=== PATIENT | female | born 1970 | race African-American/Black ===

== ENCOUNTER 2018-11-18 20:05 | Emergency (ER) | payer OTHER ==
[2018-11-18 20:12] VITALS: BP 121/77; PULSE 71; TEMP 98.5; BMI 29.5
--- NOTE | 2018-11-18 21:15 | PDOC ---
History of Present Illness - General Chief Complaint: Injury Stated Complaint: R/LEG/PAIN/HEADACHE Time Seen by Provider: 11/18/18 20:22 - History of Present Illness Initial Comments: 11/18/18 21:08 48 y/o F without CM presents for evaluation after tripping while walking over an object on the sidewalk.She complains of R leg pain from the injury that occurred 5 days ago. Past History - Past Medical History Allergies/Adverse Reactions: Allergies Allergy/AdvReac Type Severity Reaction Status Date / Time No Known Allergies Allergy Verified 11/18/18 20:12 Home Medications: Ambulatory Orders Calcium Carbonate/Vitamin D3 [Calcium 250+D Tablet] 1 each PO DAILY 08/19/14 Aspirin [ASA -] 81 mg PO DAILY #7 tab.chew 09/10/14 Naproxen [Naprosyn -] 500 mg PO BID PRN #14 tablet 09/18/15 Cyclobenzaprine HCl [Flexeril 10 mg] 10 mg PO HS PRN #10 tablet 11/18/18 Ibuprofen [Motrin -] 600 mg PO TID #30 tablet 11/18/18 COPD: No HTN: Yes (controlled with oral meds) - Surgical History Cardiac Surgery: Yes (2) - Immunization History Immunization Up to Date: Yes - Suicide/Smoking/Psychosocial Hx Smoking History: Never smoked Number of Cigarettes Smoked Daily: 0 Cigars Per Day: 0 Hx Alcohol Use: Yes (OCCASIONALLY) Drug/Substance Use Hx: No Substance Use Type: None Review of Systems - Review of Systems Musculoskeletal: Yes: See HPI, Joint Pain, Muscle Pain *Physical Exam - Vital Signs Last Vital Signs Temp Pulse Resp BP Pulse Ox 98.5 F 71 18 121/77 97 11/18/18 20:10 11/18/18 20:10 11/18/18 20:10 11/18/18 20:10 11/18/18 20:10 - Physical Exam Comments: 11/18/18 21:12 There is decreased painful ROM of the knee 0-90 with pain, there is no effusion of instability, there is medial and lateral JLT The calf is soft and floppy with tenderness about the medial and lateral head of the gastroc. There is also tenderness about the hamstrings, there is no medial thigh tenderness, SLR test is negative and there are no gross sensory or motor deficits. [facility] Medical Decision Making - Medical Decision Making 11/18/18 21:15 hamstring and calf strain as well as possible MMT and LMT R knee, Motrin and flexeril f/u with ortho WBAT with crutches. *DC/Admit/Observation/Transfer Diagnosis at time of Disposition: Knee pain, right, Muscle strain of right lower extremity - Discharge Dispostion Disposition: HOME Condition at time of disposition: Stable Decision to Admit order: No - Prescriptions Prescriptions: Cyclobenzaprine HCl [Flexeril 10 mg] 10 mg PO HS PRN #10 tablet PRN Reason: Muscle Spasms Ibuprofen [Motrin -] 600 mg PO TID #30 tablet - Referrals Referrals: Gael Peter MD [Primary Care Provider] - Sergei García DO [Staff Physician] - - Patient Instructions Additional Instructions: Please take the medication as directed. Without fail please follow up with orthopedic surgery in 1-2 days for further evaluation and treatment options. Return to the emergency room should symptoms worsen, You may weight bear as tolerated with the use of crutches until you are no longer limping. - Post Discharge Activity
== END 2018-11-18 21:27 | disposition home or self-care (01) ==
LOC: JERFT 20:05
DX: S86.111A Strain of other muscle(s) and tendon(s) of posterior muscle group at lower leg level, right leg, initial encounter (principal); M25.562 Pain in left knee; W18.09XA Striking against other object with subsequent fall, initial encounter; Y93.01 Activity, walking, marching and hiking; Y92.480 Sidewalk as the place of occurrence of the external cause; Y99.8 Other external cause status; I10 Essential (primary) hypertension
CPT/HCPCS: 99281-25

== ENCOUNTER 2019-04-19 04:25 | Emergency (ER) | payer OTHER ==
[2019-04-19 04:33] VITALS: BP 128/82; PULSE 90; TEMP 98.5; BMI 32.1
[2019-04-19] MEDS ORDERED: AMPICILLIN NA/SULBACTAM NA 1.5 GM in SODIUM CHLORIDE 100 ML IVPB ONE (05:02)
--- NOTE | 2019-04-19 05:20 | PDOC ---
Attending Attestation - Resident Resident Name: Dahiana Betancourt - ED Attending Attestation I have performed the following: I have examined & evaluated the patient, The case was reviewed & discussed with the resident, I agree w/resident's findings & plan - HPI HPI: 04/19/19 05:22 Pt comes with self stab wound to the L palmar hand @ the 4th MCP joint. Pt was cutting brownies with a clean knife and accidentally stuck herself. - Physicial Exam PE: 04/19/19 05:23 Agree with resident exam 04/19/19 05:23 Pt has no fever; hand is neither swollen nor red. Pt states that she cleaned her hand out with soap and water and placed bacitracin on it and she iced the hand. Now with pain at the palmar aspect of the hand. - Medical Decision Making 04/19/19 05:24 Pt will be discharged home with augmentin 500mg TID x 7 days She will be given a dose of IV Unasyn here She is UTD on her Tdap. Pt understands the risk of flexor tenosynovitis. She will look out for redness, swelling, worsening pain. Pt has been advised to follow at a tertiary facility that has a hand surgeon
--- NOTE | 2019-04-19 05:23 | PDOC ---
History of Present Illness - General Chief Complaint: Pain Stated Complaint: CHEST PAIN/FINGER LACERATION Time Seen by Provider: 04/19/19 04:54 History Source: Patient Exam Limitations: No Limitations - History of Present Illness Initial Comments: 04/19/19 05:23 49y F with no significant PMH presenting to ED with complaints of hand pain due to puncture injury by knife cutting [place] at 2000 last night. She applied pressure which stopped the bleeding and applied antibacterial ointment. There is no longer a cut. She endorses pain in the hand with difficulty flexing the 4th L digit. Denies numbness/tingling, fevers, erythema. She is also here with complaints of R sided chest pain x 2-3 months. Pt describes the pain as intermittent, occurring almost every week sporadically lasting for approx 1h. Pt states that she does not move when this happens. Denies recent surgery, travel, ocp use, leg swelling, smoking, history of sudden cardiac , dyspnea. No symptoms at this time. PMD: PMH: none PSH: none Meds; none Allergies: nkda Social: denies Past History - Past Medical History Allergies/Adverse Reactions: Allergies Allergy/AdvReac Type Severity Reaction Status Date / Time No Known Allergies Allergy Verified 04/19/19 04:31 Home Medications: Ambulatory Orders Cyclobenzaprine HCl 10 mg PO Q8H PRN #14 tablet 11/19/18 Ibuprofen 600 mg PO Q6H PRN #30 tablet 11/19/18 Amoxicillin/Potassium Clav [Augmentin 500-125 Tablet] 1 each PO TID #21 tablet 04/19/19 Ibuprofen 600 mg PO TID #12 tablet 04/19/19 COPD: No HTN: Yes (controlled with oral meds) - Surgical History Cardiac Surgery: Yes (2) - Immunization History Immunization Up to Date: Yes - Psycho Social/Smoking Cessation Hx Smoking History: Never smoked Number of Cigarettes Smoked Daily: 0 Cigars Per Day: 0 Hx Alcohol Use: No Drug/Substance Use Hx: No Substance Use Type: None Review of Systems - Review of Systems Constitutional: No: Symptoms Reported HEENTM: No: Symptoms Reported Respiratory: No: Symptoms reported Cardiac (ROS): Yes: See HPI ABD/GI: No: Symptoms Reported : No: Symptoms Reported Musculoskeletal: Yes: See HPI Integumentary: Yes: See HPI Neurological: No: Symptoms reported *Physical Exam - Vital Signs Last Vital Signs Temp Pulse Resp BP Pulse Ox 98.5 F 90 18 128/82 98 04/19/19 04:04/19/19 04:04/19/19 04:04/19/19 04:04/19/19 04:26 - Physical Exam General Appearance: Yes: Nourished, Appropriately Dressed. No: Apparent Distress HEENT: positive: EOMI, GARCIA, Normal ENT Inspection Respiratory/Chest: positive: Lungs Clear, Normal Breath Sounds. negative: Crackles, Rales, Rhonchi, Stridor, Wheezing Cardiovascular: positive: Regular Rhythm, Regular Rate, S1, S2. negative: Edema , JVD, Murmur Gastrointestinal/Abdominal: positive: Normal Bowel Sounds, Soft. negative: Tender Extremity: positive: Other (L hand with scar on palmar aspect near 4th digit. no fb, drainage, bleeding, color change. pain with passive flexion of 4th digit. ) Integumentary: positive: Normal Color, Dry, Warm Neurologic: positive: import/export specialist II-XII NML intact, Fully Oriented, Alert, Normal Mood/ Affect, Normal Response, Motor Strength 5/5 Medical Decision Making - Medical Decision Making 04/19/19 06:27 49y F presenting to ED for laceration and atypical cp. low suspicion for acs, pt following up with pmd for this. Does not require work up at this time; does not have cp at this time. unasyn given for coverage. toradol for pain low suspicion for flexor tenosynovitis at this time. no laceration to repair; no open lesion, no active bleeding. pt refusing xray. augmentin and ibuprofen sent to pharmacy. given return precautions and splint to wear. 04/19/19 06:30 Discharge - Discharge Information Problems reviewed: Yes Clinical Impression/Diagnosis: Laceration of hand Qualifiers: Encounter type: initial encounter Foreign body presence: without foreign body Laterality: left Qualified Code(s): S61.412A - Laceration without foreign body of left hand, initial encounter Condition: Good Disposition: HOME - Admission No - Additional Discharge Information Prescriptions: Amoxicillin/Potassium Clav [Augmentin 500-125 Tablet] 1 each PO TID #21 tablet Ibuprofen 600 mg PO TID #12 tablet - Follow up/Referral Referrals: Gael Peter MD [Primary Care Provider] - - Patient Discharge Instructions Additional Instructions: A prescription for an antibiotic was sent to your pharmacy, use as directed. Come back to the ER if you have worsening swelling of the finger, it is red, you cannot move it despite pain medications or if any new or concerning symptom develops. Thank you - Post Discharge Activity
[2019-04-19] MEDS ORDERED: KETOROLAC TROMETHAMINE 15 MG/ML VIAL IVPUSH ONE (06:08)
[2019-04-19] MEDS ORDERED: KETOROLAC TROMETHAMINE 15 MG/ML VIAL ONE (06:09)
--- NOTE | 2019-04-19 09:55 | EKG ---
Test Reason : Blood Pressure : / mmHG Vent. Rate : 087 BPM Atrial Rate : 087 BPM P-R Int : 150 ms QRS Dur : 086 ms QT Int : 378 ms P-R-T Axes : 050 014 037 degrees QTc Int : 454 ms POOR DATA QUALITY, INTERPRETATION MAY BE ADVERSELY AFFECTED NORMAL SINUS RHYTHM NORMAL ECG WHEN COMPARED WITH ECG OF 10-SEP-2014 07:51, NO SIGNIFICANT CHANGE WAS FOUND Confirmed by Kristina Becker ([id number]) on 04/19/2019 9:54:35 AM Referred By: Confirmed By:Kristina Becker
== END 2019-04-19 06:29 | disposition home or self-care (01) ==
LOC: JER 04:25
PROC: 3E03329 Introduction of Other Anti-infective into Peripheral Vein, Percutaneous Approach (ICD-10-PCS; principal; 2019-04-19)
PROC: 2W3KX1Z Immobilization of Left Finger using Splint (ICD-10-PCS; 2019-04-19)
DX: S61.215A Laceration without foreign body of left ring finger without damage to nail, initial encounter (principal); W26.0XXA Contact with knife, initial encounter; Y93.G1 Activity, food preparation and clean up; Y92.038 Other place in apartment as the place of occurrence of the external cause; Y99.8 Other external cause status
CPT/HCPCS: 29131; 93005; 93010; 96365; 99284-25

== ENCOUNTER 2022-08-12 01:40 | Emergency (ER) | payer OTHER ==
[2022-08-12 01:52] VITALS: BP 133/92; PULSE 107; RESP 18; TEMP 98.1; BMI 29.7
[2022-08-12] MEDS ORDERED: KETOROLAC TROMETHAMINE 30 MG/1 ML VIAL IM ONE (02:48)
[2022-08-12] MEDS ORDERED: KETOROLAC TROMETHAMINE 30 MG/1 ML VIAL ONE (02:51)
== END 2022-08-12 04:06 | disposition home or self-care (01) ==
LOC: JER 01:40
PROC: 3E0233Z Introduction of Anti-inflammatory into Muscle, Percutaneous Approach (ICD-10-PCS; principal; 2022-08-12)
DX: M25.561 Pain in right knee (principal); G89.29 Other chronic pain
CPT/HCPCS: 73562-TC-RT-FY; 99284-25